=== PATIENT | female | born 1930 | race Caucasian/White ===

== ENCOUNTER → 2017-04-30 | Outpatient (CLI) | payer MEDICARE | END | disposition home or self-care (01) | LOC: GMAM 10:19 | PROVIDERS: ATTEND Family Medicine | DX: R53.83 Other fatigue (principal); E55.9 Vitamin D deficiency, unspecified; E53.8 Deficiency of other specified B group vitamins ==

== ENCOUNTER → 2017-06-05 | Outpatient (CLI) | payer MEDICARE ==
--- NOTE | 2017-06-06 11:52 | US ---
EXAM DESCRIPTION: Thyroid CLINICAL HISTORY: 86 years, Female, THYROID NODULE COMPARISON: None. TECHNIQUE: Multiple real-time sonographic images were obtained of the thyroid. FINDINGS: The right lobe demonstrates multiple small cysts throughout. There may be an individual nodule in the lower pole measuring 1.2 x 1.1 cm but its half comprised of multiple small cysts. The left lobe demonstrates a few small cysts in the 4 mm or smaller range. The right lobe measures 4.9 cm in length by 1.4 x 2.5 cm. The left lobe measures 5.1 cm in length by 1.4 x 1.6 cm. And the isthmus measures 3 mm in thickness. Surrounding soft tissues are unremarkable. IMPRESSION: Multiple small cysts in both lobes of the thyroid most of the right. And a possible mixed cystic solid nodule in the lower right lobe. Electronically signed by: Jonny Beltran MD 06/06/2017 11:50 AM CDT
== END ==
LOC: US 14:44
PROVIDERS: ATTEND Family Medicine
DX: E04.1 Nontoxic single thyroid nodule (principal)

== ENCOUNTER → 2017-06-27 | Outpatient (CLI) | payer MEDICARE | END | disposition home or self-care (01) | LOC: GMAM 15:05 | PROVIDERS: ATTEND Family Medicine | DX: R10.84 Generalized abdominal pain (principal) ==

== ENCOUNTER → 2017-06-29 | Outpatient (CLI) | payer MEDICARE ==
--- NOTE | 2017-07-02 07:46 | CT ---
EXAM DESCRIPTION: CT abdomen and pelvis without contrast CLINICAL HISTORY: GENERALIZED ABDOMINAL PAIN COMPARISON: 06/17/2015 TECHNIQUE: Noncontrast spiral CT with coronal and sagittal reformatted images. This exam was performed according to our departmental dose-optimization program, which includes automated exposure control, adjustment of the mA and/or kV according to patient size and/or use of iterative reconstruction technique. FINDINGS: Visualized lung bases are clear. Heart size is normal. Tortuous atherosclerotic aorta without aneurysm Calcified granuloma in the liver. Liver otherwise normal. No diagnostic abnormality of the gallbladder. No biliary duct dilation No mass lesion of the spleen, pancreas, adrenal glands or kidneys. No renal, ureteral or bladder calculus No abnormality of the terminal ileum or appendix. No mass lesion or diagnostic inflammatory process seen in the large intestine or small intestine. Omentum, small bowel mesentery and retroperitoneum show no mass lesion or adenopathy Multilevel degenerative change in the spine with levoscoliosis. No acute bony abnormality IMPRESSION: No diagnostic acute inflammatory process in the abdomen or pelvis No mass or adenopathy Electronically signed by: Faraz Batista MD 07/02/2017 7:45 AM CDT
== END ==
LOC: CT 08:15
PROVIDERS: ATTEND Family Medicine
DX: R10.84 Generalized abdominal pain (principal)

== ENCOUNTER 2017-07-09 20:18 | Emergency (ER) | payer MEDICARE ==
--- NOTE | 2017-07-09 21:05 | ED.PDOC ---
History of Present Illness - General Chief Complaint: General Stated Complaint: dizzy, ear discomfort, headache Time Seen by Provider: 07/09/17 21:01 Source: patient, RN notes reviewed, Vital Signs reviewed Exam Limitations: no limitations - History of Present Illness Initial Comments: Patient comes in with c/o of dizziness. She had one episode yesterday walking from the kitchen to her chair in the living room. She had another episode today. The episode lasted ~15 minutes and resolved on its own. No headache, no vision changes. No loss of balance. She was recently treated with allergy medication and antibiotics for ear pain. No weakness, numbness. No chest pain, SOB or N/V. Overall she is healthy and takes no routine medications. Timing/Duration: momentarily, intermittent Severity: moderate Improving Factors: nothing Worsening Factors: nothing Associated Symptoms: denies symptoms Allergies/Adverse Reactions: Allergies Penicillins Allergy (Unknown, Verified 07/09/17 20:37) Morphine Allergy (Verified 07/09/17 20:37) Sulfa Antibiotics Allergy (Verified 07/09/17 20:37) Home Medications: Ambulatory Orders Celecoxib [CeleBREX] 100 mg PO DAILY 07/09/17 Lansoprazole [Prevacid] 30 mg PO DAILY 07/09/17 Review of Systems - Review of Systems Constitutional: States: no symptoms reported. Denies: chills, fever EENTM: States: ear pain, throat pain - yesterday but she has esophageal issues and feels it was related to that. Denies: blurred vision, double vision Respiratory: States: no symptoms reported. Denies: short of breath Cardiology: States: no symptoms reported. Denies: chest pain, syncope Gastrointestinal/Abdominal: States: no symptoms reported Musculoskeletal: States: no symptoms reported Skin: States: no symptoms reported Neurological: States: see HPI, headache - brief, mild occipital ORTIZ today. Denies: numbness, paresthesia, tingling, weakness All other Systems: No Change from Baseline Past Medical History (General) - Patient Medical History Hx Seizures: No Hx Stroke: No Hx Dementia: No Hx Asthma: No Hx of COPD: No Hx Cardiac Disorders: No Hx Congestive Heart Failure: No Hx Pacemaker: No Hx Hypertension: No Hx Thyroid Disease: No Hx Diabetes: No Hx Gastroesophageal Reflux: Yes Hx Renal Disease: No Hx Cancer: No Hx of HIV: No Hx Hepatitis C: No Hx MRSA: No Surgical History: Hysterectomy - Vaccination History Hx Tetanus, Diphtheria Vaccination: No Hx Influenza Vaccination: No Hx Pneumococcal Vaccination: No Immunizations Up to Date: No - Social History Hx Tobacco Use: No Hx Chewing Tobacco Use: No Hx Alcohol Use: No Hx Substance Use: No Hx Substance Use Treatment: No Hx Depression: No Feels Threatened In Home Enviroment: No Feels Threatened In a Relationship: No Hx Physical Abuse: No Hx Emotional Abuse: No Hx Suspected Abuse: No Family Medical History - Family History Mother Living Status: Physical Exam - Physical Exam General Appearance: Alert, Comfortable, Frail, No apparent distress, Well Developed, Well Groomed, Well Hydrated, Well Nourished Eye Exam: bilateral normal Ears, Nose, Throat: hearing grossly normal, normal ENT inspection, normal pharynx Neck: non-tender, full range of motion, supple, normal inspection Respiratory: lungs clear, normal breath sounds, no respiratory distress, no accessory muscle use Cardiovascular/Chest: regular rate, rhythm, no gallop, no JVD, no murmur Extremity: normal range of motion, non-tender, normal inspection Neurologic: edge baster II-XII nml as tested, no motor/sensory deficits, alert, normal mood/affect, oriented x 3 Skin Exam: normal color, warm/dry Comments: Vital Signs 07/09/17 20:25 Temperature 97.8 F Pulse Rate [ 73 monitor] Respiratory 18 Rate Blood Pressure 182/102 [Left Arm] O2 Sat by Pulse 98 Oximetry Progress - Progress Progress: 07/09/17 23:02 Patient reports minimal improvement with Meclizine Discussed lab, EKG and CT results with patient and family Will d/c home and have her follow up with PCP - Results/Orders Results/Orders: Laboratory Tests 07/09/17 07/09/17 21:01 21:13 WBC 5.1 RBC 3.81 L Hgb 11.6 L Hct 34.7 L MCV 91.1 MCH 30.4 MCHC 33.5 RDW 14.3 Plt Count 161 MPV 8.3 Absolute Neuts (auto) 2.90 Absolute Lymphs (auto) 1.60 Absolute Monos (auto) 0.50 Absolute Eos (auto) 0.10 Absolute Basos (auto) 0.00 Neutrophils % 57.6 Lymphocytes % 31.0 Monocytes % 8.9 Eosinophils % 1.8 Basophils % 0.7 Sodium 136 Potassium 3.9 Chloride 100 L Carbon Dioxide 28 Anion Gap 11.9 L BUN 16 Creatinine 0.64 BUN/Creatinine Ratio 25.0 H Random Glucose 112 H Serum Osmolality 273.9 L Calcium 9.3 Total Bilirubin 0.3 AST 18 ALT 11 Alkaline Phosphatase 78 Serum Total Protein 7.3 Albumin 3.9 Globulin 3.4 Albumin/Globulin Ratio 1.1 - EKG/XRAY/CT EKG: Sinus, no ST T wave changes Comments: 1st degree AV block, Rate 68 CT Ordered: Yes - No acute intracranial abnormality per Radiologist Departure - Departure Clinical Impression: Vertigo Time of Disposition: 23:03 Disposition: Discharge to Home or Self Care Condition: Good Departure Forms: ED Discharge - Pt. Copy, Patient Portal Self Enrollment Instructions: DI for Vertigo Diet: resume usual diet Activity: increase activity as tolerated Referrals: Faraz Carrion MD [Primary Care Provider] - 1-5 Days Home Medications: Ambulatory Orders Celecoxib [CeleBREX] 100 mg PO DAILY 07/09/17 Lansoprazole [Prevacid] 30 mg PO DAILY 07/09/17
[2017-07-09] MEDS ORDERED: MECLIZINE HCL 12.5 MG TAB PO ONE (21:41)
--- NOTE | 2017-07-09 22:56 | CT ---
PROCEDURE: Head CLINICAL HISTORY: 86 years Female Dizziness/Vertigo COMPARISON: None. TECHNIQUE: Contiguous axial CT images obtained through the brain without IV contrast. This exam was performed according to our department optimization program which includes automated exposure control, adjustment of the mA and/or kv according to patient size and/or use of iterative reconstruction technique. FINDINGS: The ventricles and sulci are prominent consistent with atrophic changes. Microvascular ischemic changes. No midline shift or mass effect. No mass lesions. No acute hemorrhage. Atherosclerotic calcifications. No fluid or significant mucosal thickening in the visualized paranasal sinuses. No depressed calvarial fractures. IMPRESSION: No acute intracranial abnormality is identified. Early infarcts are not always visualized with CT. If there is clinical concern for the possibility of acute ischemic change, MRI could be obtained to better evaluate. Generalized atrophy with microvascular ischemic changes. Electronically signed by: Jailene Long 07/09/2017 10:54 PM CDT
[2017-07-09 23:13] VITALS: BP 152/93; TEMP 97.9; O2SAT 97
== END 2017-07-09 23:13 | disposition home or self-care (01) ==
LOC: ER 20:18
DX: R42 Dizziness and giddiness (principal); Z88.6 Allergy status to analgesic agent; Z88.2 Allergy status to sulfonamides; Z88.0 Allergy status to penicillin

== ENCOUNTER → 2018-05-01 | Outpatient (CLI) | payer MEDICARE | LOC: GMAM 19:42 | PROVIDERS: ATTEND Family Medicine | DX: E53.8 Deficiency of other specified B group vitamins (principal); E04.1 Nontoxic single thyroid nodule; E55.9 Vitamin D deficiency, unspecified; I10 Essential (primary) hypertension; R73.9 Hyperglycemia, unspecified ==